=== PATIENT | female | born 1955 | race American Indian/Alaskan Native ===

== ENCOUNTER 2018-11-22 00:32 | Emergency (ER) | payer SELFPAY ==
[2018-11-22 01:12] LABS: Basophils # (Auto) 0.1 K/mm3 (0.0-0.1); Basophils % (Auto) 0.5 % (0.0-1.8); Eosinophils # (Auto) 0.2 K/mm3 (0.0-0.4); Eosinophils % (Auto) 1.9 % (0.0-4.3); Hematocrit 35.1 % (30.3-42.9); Hemoglobin 11.5 gm/dl (10.1-14.3); Lymphocytes # (Auto) 3.5 K/mm3 (1.2-5.4); Lymphocytes % (Auto) 33.5 % (13.4-35.0); Mean Corpuscular HGB Conc 33 % (30-34); Mean Corpuscular Volume 86 fl (79-97); Monocytes # (Auto) 0.9 K/mm3 (0.0-0.8); Monocytes % (Auto) 8.6 % (0.0-7.3); Platelet Count 374 K/mm3 (140-440); Red Blood Count 4.06 M/mm3 (3.65-5.03)
[2018-11-22 01:34] LABS: Albumin 3.8 g/dL (3.9-5); BUN/Creatinine Ratio 13; Blood Urea Nitrogen 9 mg/dL (7-17); Calcium 10.2 mg/dL (8.4-10.2); Hemolysis Index 176
[2018-11-22 01:52] LABS: Alanine Aminotransferase 18 units/L (7-56)
[2018-11-22] MEDS ORDERED: NACL 0.9% 1000 ML 1,000 ML IV ONE (02:01)
[2018-11-22] MEDS ORDERED: MORPHINE IV ONE (02:01)
[2018-11-22] MEDS ORDERED: ZOFRAN IV ONE (02:01)
[2018-11-22] MEDS ORDERED: PROTONIX IV ONE (02:01)
--- NOTE | 2018-11-22 02:05 | Emergency Department Report ---
ED Abdominal Pain HPI - General Chief Complaint: Abdominal Pain Stated Complaint: LT SIDE STOMACH PAIN Time Seen by Provider: 11/22/18 01:55 Source: patient, family Mode of arrival: Wheelchair Limitations: No Limitations - History of Present Illness Initial Comments: Patient is 63 years old female with no significant past medical history. Patient presented to the ER complaining of abdominal pain, diffuse with no radiation was sharp in nature. Patient stated that pain started one month ago but it progressively getting worse. Patient went to [facility] last week and stated that she had CT abdomen and pelvis and ultrasound and informed that they could not find anything wrong but they recommended MRI as an outpatient but patient unable to do it because of insurance issues. Patient denied any nausea or vomiting or diarrhea. MD Complaint: abdominal pain -: month(s) (1) Location: diffuse Migration to: no migration Severity: moderate Quality: sharp Consistency: constant - Related Data Allergies Allergy/AdvReac Type Severity Reaction Status Date / Time Sulfa (Sulfonamide Allergy Angioedema Verified 11/22/18 00:42 Antibiotics) ED Review of Systems ROS: Stated complaint: LT SIDE STOMACH PAIN Other details as noted in HPI Comment: All other systems reviewed and negative Constitutional: denies: chills, fever Respiratory: denies: shortness of breath Cardiovascular: denies: chest pain Gastrointestinal: abdominal pain. denies: nausea, vomiting, diarrhea, constipation, hematemesis, melena, hematochezia Musculoskeletal: denies: back pain Neurological: denies: headache, weakness, numbness, paresthesias, confusion ED Past Medical Hx - Past Medical History Previous Medical History?: No - Surgical History Past Surgical History?: No - Social History Smoking Status: Never Smoker Substance Use Type: None ED Physical Exam - General Limitations: No Limitations General appearance: alert, in no apparent distress - Head Head exam: Present: atraumatic, normocephalic, normal inspection - Eye Eye exam: Present: normal appearance, PERRL - ENT ENT exam: Present: normal exam, normal orophraynx, mucous membranes moist - Neck Neck exam: Present: normal inspection, full ROM. Absent: tenderness, meningismus, lymphadenopathy, thyromegaly - Respiratory Respiratory exam: Present: normal lung sounds bilaterally - Cardiovascular Cardiovascular Exam: Present: regular rate, normal rhythm, normal heart sounds - GI/Abdominal GI/Abdominal exam: Present: soft, tenderness, normal bowel sounds. Absent: distended, guarding, rebound, rigid, organomegaly, mass, bruit, pulsatile mass, hernia - Extremities Exam Extremities exam: Present: normal inspection, full ROM, normal capillary refill - Back Exam Back exam: Present: normal inspection, full ROM. Absent: tenderness, CVA tenderness (R), CVA tenderness (L), muscle spasm, paraspinal tenderness, vertebral tenderness - Neurological Exam Neurological exam: Present: alert, oriented X3, CN II-XII intact, normal gait, reflexes normal - Psychiatric Psychiatric exam: Present: normal mood - Skin Skin exam: Present: warm, intact, normal color ED Course Vital Signs 11/22/18 00:36 Temperature 98.3 F Pulse Rate 122 H Respiratory 18 Rate Blood Pressure 135/75 O2 Sat by Pulse 99 Oximetry ED Medical Decision Making - Lab Data Result diagrams: 11/22/18 00:44 11/22/18 00:44 - Medical Decision Making Patient is 63 years old female with no significant past medical history. Patient presented to the ER complaining of abdominal pain, diffuse with no radiation was sharp in nature. Patient stated that pain started one month ago but it progressively getting worse. Patient went to [facility] last week and stated that she had CT abdomen and pelvis and ultrasound and informed that they could not find anything wrong but they recommended MRI as an outpatient but patient unable to do it because of insurance issues. Patient denied any nausea or vomiting or diarrhea. Records from [place] obtained. CT abdomen and pelvis showed a large irregular mass measuring 5.96.25.9 cm in the left upper quadrant which may be arising from the pancreatic tail. The mass invading the greater curvature of the stomach and spleen. I discussed the finding with patient and her 2 daughters that at present. I refer patient to [facility] for further workup. Patient given Coleman for pain and Zofran for nausea and strongly advised to follow-up with GI for further workup. Both patient and her daughter understood the instructions very well and they stated that there will call in the morning to make an appointment. Critical care attestation.: If time is entered above; I have spent that time in minutes in the direct care of this critically ill patient, excluding procedure time. ED Disposition Clinical Impression: Abdominal pain, Pancreatic mass Disposition: TO HOME OR SELFCARE Is pt being admited?: No Condition: Stable Instructions: Abdominal Pain (ED) Additional Instructions: Your CT abdomen and pelvis done at [facility] on October showed possible pancreatic mass which is most likely pancreatic cancer. This finding required immediate follow-up with gastroenterology. Please follow-up with your GI doctor as soon as possible. Referrals: [facility] [Provider Group] - 3-5 Days
[2018-11-22 02:59] LABS: Bilirubin,Urine NEG (Negative); Blood,Urine MOD (Negative); Color,Urine Yellow (Yellow); Protein,Urine <15 mg/dL mg/dL (Negative); Urobilinogen,Urine < 2.0 mg/dL (<2.0)
[2018-11-22 06:58] VITALS: BP 146/99
== END 2018-11-22 06:00 | disposition home or self-care (01) ==
LOC: ED 00:32
DX: K85.90 Acute pancreatitis without necrosis or infection, unspecified (principal); R11.2 Nausea with vomiting, unspecified; Z88.2 Allergy status to sulfonamides
CPT/HCPCS: 36415; 80053; 81001; 83690; 85025; 96361; 96374; 96375; 99283; C9113; J2270; J2405; J7030